=== PATIENT | female | born 2000 | race Caucasian/White ===

== ENCOUNTER 2020-04-09 05:06 | Emergency (ER) | payer OTHER ==
[~2020-04-09] VITALS: Ht 157.5 cm; Wt 61.2 kg
[2020-04-09] MEDS ORDERED: [UNRECOGNIZED DRUG - OTHER] (05:16)
[2020-04-09] MEDS ORDERED: TAPAZOLE10 MG (05:18)
[2020-04-09] MEDS ORDERED: MEDROLPACK PO (06:48)
[2020-04-09] MEDS ORDERED: ALLEGRA ALLERG180 MG PO (06:48)
[2020-04-09] MEDS ORDERED: TAPAZOLE10 MG PO (06:53)
== END 2020-04-09 07:34 | disposition home or self-care (01) ==
LOC: ER 05:06
DX: R21 Rash and other nonspecific skin eruption (principal)

== ENCOUNTER 2020-11-23 13:35 | Emergency (ER) | payer OTHER ==
[~2020-11-23] VITALS: Ht 157.5 cm; Wt 61.2 kg
[~2020-11-23 13:35] MED LIST: ALLEGRA ALLERG180 MG PO; MEDROLPACK PO; TAPAZOLE10 MG; TAPAZOLE10 MG PO; [UNRECOGNIZED DRUG - OTHER]
== END 2020-11-23 19:22 ==
LOC: ER 13:35
DX: S82.65XA Nondisplaced fracture of lateral malleolus of left fibula, initial encounter for closed fracture (principal); X58.XXXA Exposure to other specified factors, initial encounter; Y93.89 Activity, other specified; Y92.89 Other specified places as the place of occurrence of the external cause; Y99.8 Other external cause status

== ENCOUNTER 2021-02-28 18:36 | Emergency (ER) | payer OTHER ==
[~2021-02-28] VITALS: Ht 170.2 cm; Wt 61.2 kg
[2021-02-28] MEDS ORDERED: DICLOFENAC SODI75 MG PO (19:49)
== END 2021-02-28 20:53 | disposition home or self-care (01) ==
LOC: ER 18:36
DX: S60.212A Contusion of left wrist, initial encounter (principal); W22.8XXA Striking against or struck by other objects, initial encounter; Y93.89 Activity, other specified; Y92.89 Other specified places as the place of occurrence of the external cause; Y99.8 Other external cause status

== ENCOUNTER → 2021-04-17 | Outpatient (CLI) | payer OTHER ==
[~2021-04-17] MED LIST changes: +DICLOFENAC SODI75 MG PO
== END | disposition home or self-care (01) ==
LOC: RAD 14:46
PROVIDERS: ATTEND Family Medicine
DX: M41.80 Other forms of scoliosis, site unspecified (principal); M41.44 Neuromuscular scoliosis, thoracic region; M41.24 Other idiopathic scoliosis, thoracic region

== ENCOUNTER → 2021-09-01 | Emergency (ER) | payer OTHER ==
[~2021-09-01] VITALS: Ht 157.5 cm; Wt 61.2 kg
== END | disposition home or self-care (01) ==
LOC: ER 12:41
DX: S89.81XA Other specified injuries of right lower leg, initial encounter (principal); Y93.51 Activity, roller skating (inline) and skateboarding; Y93.89 Activity, other specified; Y92.89 Other specified places as the place of occurrence of the external cause; Y99.8 Other external cause status

== ENCOUNTER 2022-02-24 16:19 | Emergency (ER) | payer OTHER ==
[~2022-02-24] VITALS: Ht 160 cm; Wt 56.7 kg
[2022-02-24] MEDS ORDERED: ZITHROMAX200 MG PO (18:14)
== END 2022-02-24 19:59 | disposition home or self-care (01) ==
LOC: ER 16:19
DX: B34.9 Viral infection, unspecified (principal); A49.3 Mycoplasma infection, unspecified site; Z20.822 Contact with and (suspected) exposure to COVID-19

== ENCOUNTER 2022-04-02 16:15 | Emergency (ER) | payer OTHER ==
[~2022-04-02] VITALS: Ht 160 cm; Wt 59.0 kg
[~2022-04-02 16:15] MED LIST changes: +ZITHROMAX200 MG PO
== END 2022-04-02 20:43 | disposition home or self-care (01) ==
LOC: ER 16:15
DX: S89.92XA Unspecified injury of left lower leg, initial encounter (principal); W18.30XA Fall on same level, unspecified, initial encounter; Y93.9 Activity, unspecified; Y92.9 Unspecified place or not applicable; Y99.9 Unspecified external cause status; M25.562 Pain in left knee

== ENCOUNTER → 2022-05-11 | Outpatient (CLI) | payer OTHER | END | disposition home or self-care (01) | LOC: SONOGRAMA 14:23 | PROVIDERS: ATTEND Family Medicine | DX: E04.9 Nontoxic goiter, unspecified (principal); E06.5 Other chronic thyroiditis; E05.91 Thyrotoxicosis, unspecified with thyrotoxic crisis or storm; R10.10 Upper abdominal pain, unspecified; R10.2 Pelvic and perineal pain ==

== ENCOUNTER 2024-07-03 12:14 | Outpatient (CLI) | payer OTHER ==
[~2024-07-03 12:14] MED LIST changes: +DICLOFENAC POTA50 MG PO; +ORPHENADRINE C100 MG PO; +TAPAZOLE5 MG PO
== END 2024-07-03 12:30 | disposition home or self-care (01) ==
LOC: RAD 12:14
DX: M99.02 Segmental and somatic dysfunction of thoracic region (principal); M99.03 Segmental and somatic dysfunction of lumbar region; M99.04 Segmental and somatic dysfunction of sacral region; M99.05 Segmental and somatic dysfunction of pelvic region